=== PATIENT | female | born 1965 | race Caucasian/White ===

== ENCOUNTER 2024-03-08 22:37 | Outpatient (CLI) | payer MEDICARE, MEDICAID, SELFPAY | END 2024-03-08 22:38 | disposition home or self-care (01) | LOC: AMB 03-09 04:32 | PROVIDERS: Visit Provider Internal Medicine | DX: S99.912A Unspecified injury of left ankle, initial encounter (principal); S79.912A Unspecified injury of left hip, initial encounter; V48.0XXA Car driver injured in noncollision transport accident in nontraffic accident, initial encounter; Y92.410 Unspecified street and highway as the place of occurrence of the external cause | CPT/HCPCS: A0425; A0427 ==